=== PATIENT | male | born 1990 | race Caucasian/White ===

== ENCOUNTER 2020-06-11 17:57 | Emergency (ER) | payer BC ==
[2020-06-11] MEDS ORDERED: Sodium Chloride 0.9% 1,000 ML IV ONE (18:54)
[2020-06-11] MEDS ORDERED: cloNIDine 0.1 MG Tab PO ONE (19:04)
[2020-06-11] MEDS ORDERED: Iopamidol 755 Mg/ML 100 ML Bottle IVPUSH ONE (19:34)
[2020-06-11] MEDS ORDERED: Iopamidol 755 MG/ML 500 ML Multipack Bottle IVPUSH STA (19:35)
[2020-06-11 19:38] LABS: BLOOD UREA NITROGEN,BUN 14 mg/dL (7.0-18.0); CARBON DIOXIDE,CO2 25.4 mmol/L (21.0-32.0); CHLORIDE,CL 104 mmol/L (98-107); GLUCOSE RANDOM 102 mg/dL (74-106); POTASSIUM,K 4.2 mmol/L (3.5-5.1); SODIUM,NA 141 mmol/L (136-148)
--- NOTE | 2020-06-11 20:12 | CR ---
Clinical INDICATION: Chest pain. FINDINGS: The heart is mildly enlarged assuming this is a PA radiograph. The lungs are clear. The pulmonary vasculature and pleural surfaces appear normal. The bony thorax appears intact. Impression : The heart is mildly enlarged assuming that this is a PA radiograph as is designated on the image. Dictated by Jorge Jackson MD @ 06/11/2020 8:10:[address] Jorge Jackson @ Jun 11 2020 8:10PM
--- NOTE | 2020-06-11 20:28 | CT ---
DATE: 06/11/2020. CLINICAL HISTORY: Patient with acute onset vertigo. TECHNIQUE: Standard helical CT image acquisition through the head and neck was performed after intravenous contrast bolus enhancement. Multiplanar reconstructed images were performed and interpreted. COMPARISON: None available. FINDINGS: The origins of the great vessels from the aortic arch are patent. The origins of the right and left vertebral arteries are patent. The common carotid arteries are patent. There is no significant stenosis at the origin of the right internal carotid artery by NASCET criteria. There is no significant stenosis at the origin of the left internal carotid artery by NASCET criteria. The rest of the cervical segments of the internal carotid arteries are patent up to their intracranial segments. The intracranial segments of the internal carotid arteries are patent. The cervical segments of the vertebral arteries are patent. The intracranial segments of the vertebral arteries are patent. The anterior and middle cerebral arteries are patent. The anterior communicating artery is visualized and within normal limits. The basilar trunk and posterior cerebral arteries are patent. There is normal opacification of major intracranial venous structures. IMPRESSION: Normal CT angiogram of the head and neck. Please note that all CT scans at this facility use dose modulation, iterative reconstruction, and/or weight-based dosing when appropriate to reduce radiation dose to as low as reasonably achievable. Dictated by Macario Hastings MD @ 06/11/2020 8:35:[address] Macario Hastings @ Jun 11 2020 8:35PM
--- NOTE | 2020-06-11 20:48 | EDM.PDOC ---
ED HPI GENERAL MEDICAL PROBLEM - General Chief Complaint: Neurological Problem Stated Complaint: DIZZNIESS HBP Time Seen by Provider: 06/11/20 18:09 Source of Information: Reports: Patient History Limitations: Reports: No Limitations - History of Present Illness INITIAL COMMENTS - FREE TEXT/NARRATIVE: HISTORY AND PHYSICAL: History of present illness: Patient is a 29-year-old male who presents to the ED today with concern of dizziness/vertigo and balance issues that have been worse today. Patient states that he has been having issues with vertigo since the past 3 months and states that he has been having that off and on. Patient denies any head injury or loss of consciousness but states that he has had dizzy spells and off balance over the past 3 months. Patient states he followed up with a primary care provider, Dr. Figueroa, who told him he had an ear infection and gave him amoxicillin. Patient states that he finished the amoxicillin back in April and since then has continued to have episodes of vertigo and has not followed up as he was told it could be an inner ear issue. Patient states he has been taking Dramamine and meclizine [id number] which does help that he took both of these before coming to the emergency room without improvement of his symptoms. Patient states that he also has associated visual issues when the vertigo occurs and states that this does not happen every time but is happening during this episode. Patient states he has had happened a few times and states that a few times prior he did have double vision but states he is not currently having double vision. Patient states he has a difficulty with walking as he "feels drunk. Patient states that he does have some known mild elevation of his liver functions which he states he has not had fully evaluated in the past and states that he used to have a history of alcohol use before becoming a father 8 years ago but states that he has not used alcohol in 8 years. Patient states he also used to use anabolic steroids but has not used that in many years as well. She denies any other health history or any other symptoms or concerns. Patient denies fever, chills, chest pain, shortness of breath, or cough. Denies headache, neck stiff ness, change in vision, syncope, or near syncope. Denies nausea, vomiting, abdominal pain, diarrhea, constipation, or dysuria. Has not noted any blood in urine or stool. Patient has been eating and drinking appropriately. Review of systems: As per history of present illness and below otherwise all systems reviewed and negative. Past medical history: As per history of present illness and as reviewed below otherwise noncontributory. Surgical history: As per history of present illness and as reviewed below otherwise noncontrib utory. Social history: See social history for further information Family history: As per history of present illness and as reviewed below otherwise noncontributory. Physical exam: General: Patient is alert, oriented, and in no acute distress. Patient sitting comfortably on exam table. Hypertensive 190 over 120s otherwise vitally stable and reviewed by me. HEENT: Atraumatic, normocephalic, pupils equal and reactive bilaterally, negative for conjunctival pallor or scleral icterus, mucous membranes moist, TMs normal bilaterally, throat clear, neck supple, nontender, trachea midline. No drooling or trismus noted. No meningeal signs. No hot potato voice noted. Lungs: Clear to auscultation, breath sounds equal bilaterally, chest nontender. Heart: S1S2, regular rate and rhythm without overt murmur Abdomen: Soft, nondistended, nontender. Negative for masses or hepatosplenomegaly. Negative for costovertebral tenderness. Pelvis: Stable nontender. Genitourinary: Deferred. Rectal: Deferred. Skin: Intact, warm, dry. No lesions or rashes noted. Extremities: Atraumatic, negative for cords or calf pain. Neurovascular unremarkable. Neuro: Awake, alert, oriented. Cranial nerves II through XII unremarkable. Patient is off balance with walking and states he is light headed and needs to sit down. No nystagmus present on deisy hallpike maneuver. Notes: Upon arrival to the ED, patient is hypertensive 190s over 120s and otherwise vitally stable. He does get dizzy and off balance when trying to walk. He does not have nystagmus noted on exam with a Ronks-Hallpike maneuver. Will obtain lab work and and head and neck CT. On lab work, CBC does show erythrocytosis otherwise unremarkable. CMP does show mild elevation in creatinine at 1.5. Mild elevation of AST at 64 and ALT at 144. Troponin is negative. BNP is within normal limits. Chest x-ray shows that the heart is mildly enlarged assuming that this is a PA radiograph as designated on the image. Head and neck angio CT is unremarkable. Upon reevaluation of patient, he is now able to walk without being off balance and states that his lightheadedness has resolved.BP now 170/90 and remains vitally stable throughout stay in ED. Strict return precautions thoroughly discussed with patient. Discussed importance for follow-up with his primary care provider/and the neurologist. He states that he does have an appointment in the morning with his PCP. Voices understanding and is agreeable to plan of care. Denies any further questions or concerns at this time. Diagnostics: CBC, CMP, troponin, BMP, chest x-ray, and head neck CT orthostatic vital signs Therapeutics: NS, Clonidine Prescription: None Impression: Dizziness Hypertension Transaminitis Plan: 1. Continue to use Meclizine as needed for dizziness as discussed. 2. Establish care / follow up with a primary care divider and neurologist as discussed. Return to the ED as needed and as discussed. Definitive disposition and diagnosis as appropriate pending reevaluation and review of above. - Related Data Allergies Allergy/AdvReac Type Severity Reaction Status Date / Time No Known Allergies Allergy Verified 06/11/20 18:41 Home Meds: Home Meds Meclizine [Antivert] 25 mg PO Q6H PRN 06/11/20 [History] Vertisil 1 tab PO BID 06/11/20 [History] dimenhyDRINATE [Dimenhydrinate] 50 mg PO QAM 06/11/20 [History] Past Medical History Neurological History: Reports: Vertigo - Infectious Disease History Infectious Disease History: Reports: None Social & Family History - Family History Family Medical History: No Pertinent Family History - Caffeine Use Caffeine Use: Reports: None - Recreational Drug Use Recreational Drug Use: No ED ROS GENERAL - Review of Systems Review Of Systems: Comprehensive ROS is negative, except as noted in HPI. ED EXAM, GENERAL - Physical Exam Exam: See Below (see dictation) Course - Vital Signs Last Recorded V/S: Last Vital Signs Temp 98.2 F 06/11/20 18:38 Pulse 82 06/11/20 20:39 Resp 18 06/11/20 20:39 BP 148/85 H 06/11/20 20:39 Pulse Ox 94 L 06/11/20 20:39 Orthostatic Blood Pressure [ 135/91 Standing] Orthostatic Blood Pressure [ 160/68 Sitting] Orthostatic Blood Pressure [ 148/87 Supine] - Orders/Labs/Meds Labs: Laboratory Tests 06/11/20 06/11/20 06/11/20 Range/Units 19:06 19:06 19:06 WBC 8.68 (4.0-11.0) K/uL RBC 6.61 H (4.50-5.90) M/uL Hgb 19.4 H (13.0-17.0) g/dL Hct 58.0 H (38.0-50.0) % MCV 87.7 (80.0-98.0) fL MCH 29.3 (27.0-32.0) pg MCHC 33.4 (31.0-37.0) g/dL RDW Std Deviation 43.0 (28.0-62.0) fl RDW Coeff of Roxie 14 (11.0-15.0) % Plt Count 208 (150-400) K/uL MPV 10.80 (7.40-12.00) fL Neut % (Auto) 76.4 (48.0-80.0) % Lymph % (Auto) 16.7 (16.0-40.0) % Clarke % (Auto) 6.1 (0.0-15.0) % Eos % (Auto) 0.7 (0.0-7.0) % Baso % (Auto) 0.1 (0.0-1.5) % Neut # (Auto) 6.6 H (1.4-5.7) K/uL Lymph # (Auto) 1.5 (0.6-2.4) K/uL Clarke # (Auto) 0.5 (0.0-0.8) K/uL Eos # (Auto) 0.1 (0.0-0.7) K/uL Baso # (Auto) 0.0 (0.0-0.1) K/uL Nucleated RBC % 0.0 /100WBC Nucleated RBCs # 0 K/uL Sodium 141 (136-148) mmol/L Potassium 4.2 (3.5-5.1) mmol/L Chloride 104 (98-107) mmol/L Carbon Dioxide 25.4 (21.0-32.0) mmol/L BUN 14 (7.0-18.0) mg/dL Creatinine 1.5 H (0.8-1.3) mg/dL Est Cr Clr Drug Dosing 85.28 mL/min Estimated GFR (MDRD) 54.6 ml/min Glucose 102 (74-106) mg/dL Calcium 9.3 (8.5-10.1) mg/dL Total Bilirubin 0.5 (0.2-1.0) mg/dL AST 64 H (15-37) IU/L ALT 144 H (14-63) IU/L Alkaline Phosphatase 46 (46-116) U/L Troponin I < 0.050 (0.000-0.056) ng/mL B-Natriuretic Peptide < 2 (<100) PG/ML Total Protein 7.6 (6.4-8.2) g/dL Albumin 3.9 (3.4-5.0) g/dL Globulin 3.7 (2.6-4.0) g/dL Albumin/Globulin Ratio 1.1 (0.9-1.6) Urine Color Urine Appearance Urine pH (5.0-8.0) Ur Specific Beverly (1.001-1.035) Urine Protein (NEGATIVE) mg/dL Urine Glucose (UA) (NEGATIVE) mg/dL Urine Ketones (NEGATIVE) mg/dL Urine Occult Blood (NEGATIVE) Urine Nitrite (NEGATIVE) Urine Bilirubin (NEGATIVE) Urine Urobilinogen (<2.0) EU/dL Ur Leukocyte Esterase (NEGATIVE) Urine RBC (0-2/HPF) Urine WBC (0-5/HPF) Ur Epithelial Cells (NONE-FEW) Urine Bacteria (NEGATIVE) 06/11/20 Range/Units 20:32 WBC (4.0-11.0) K/uL RBC (4.50-5.90) M/uL Hgb (13.0-17.0) g/dL Hct (38.0-50.0) % MCV (80.0-98.0) fL MCH (27.0-32.0) pg MCHC (31.0-37.0) g/dL RDW Std Deviation (28.0-62.0) fl RDW Coeff of Roxie (11.0-15.0) % Plt Count (150-400) K/uL MPV (7.40-12.00) fL Neut % (Auto) (48.0-80.0) % Lymph % (Auto) (16.0-40.0) % Clarke % (Auto) (0.0-15.0) % Eos % (Auto) (0.0-7.0) % Baso % (Auto) (0.0-1.5) % Neut # (Auto) (1.4-5.7) K/uL Lymph # (Auto) (0.6-2.4) K/uL Clarke # (Auto) (0.0-0.8) K/uL Eos # (Auto) (0.0-0.7) K/uL Baso # (Auto) (0.0-0.1) K/uL Nucleated RBC % /100WBC Nucleated RBCs # K/uL Sodium (136-148) mmol/L Potassium (3.5-5.1) mmol/L Chloride (98-107) mmol/L Carbon Dioxide (21.0-32.0) mmol/L BUN (7.0-18.0) mg/dL Creatinine (0.8-1.3) mg/dL Est Cr Clr Drug Dosing mL/min Estimated GFR (MDRD) ml/min Glucose (74-106) mg/dL Calcium (8.5-10.1) mg/dL Total Bilirubin (0.2-1.0) mg/dL AST (15-37) IU/L ALT (14-63) IU/L Alkaline Phosphatase (46-116) U/L Troponin I (0.000-0.056) ng/mL B-Natriuretic Peptide (<100) PG/ML Total Protein (6.4-8.2) g/dL Albumin (3.4-5.0) g/dL Globulin (2.6-4.0) g/dL Albumin/Globulin Ratio (0.9-1.6) Urine Color YELLOW Urine Appearance CLEAR Urine pH 6.5 (5.0-8.0) Ur Specific Beverly 1.010 (1.001-1.035) Urine Protein TRACE H (NEGATIVE) mg/dL Urine Glucose (UA) NEGATIVE (NEGATIVE) mg/dL Urine Ketones NEGATIVE (NEGATIVE) mg/dL Urine Occult Blood NEGATIVE (NEGATIVE) Urine Nitrite NEGATIVE (NEGATIVE) Urine Bilirubin NEGATIVE (NEGATIVE) Urine Urobilinogen 0.2 (<2.0) EU/dL Ur Leukocyte Esterase NEGATIVE (NEGATIVE) Urine RBC 0-1 (0-2/HPF) Urine WBC 0-1 (0-5/HPF) Ur Epithelial Cells RARE (NONE-FEW) Urine Bacteria RARE (NEGATIVE) Meds: Medications Discontinued Medications Generic Name Dose Route Start Last Admin Trade Name Heriberto PRN Reason Stop Dose Admin Clonidine HCl 0.1 mg 06/11/20 19:04 06/11/20 19:49 Clonidine 0.1 Mg Tab PO 06/11/20 19:05 0.1 mg ONETIME ONE Administration Sodium Chloride 1,000 mls @ 999 mls/hr 06/11/20 18:54 06/11/20 19:01 Normal Saline IV 06/11/20 19:54 999 mls/hr BOLUS ONE Administration Iopamidol 100 ml 06/11/20 19:34 Iopamidol 755 Mg/Ml 100 Ml Bottle IVPUSH 06/11/20 19:35 ONETIME ONE Iopamidol 100 ml 06/11/20 19:35 06/11/20 19:36 Iopamidol 755 Mg/Ml 500 Ml Multipack Bottle IVPUSH 06/11/20 19:36 100 ml ONETIME STA Administration Departure - Departure Time of Disposition: 20:43 Disposition: Home, Self-Care 01 Clinical Impression: Dizziness, Transaminitis Hypertension Qualifiers: Hypertension type: unspecified Qualified Code(s): I10 - Essential (primary) hypertension - Discharge Information Instructions: Vertigo, [id number], Hypertension, Adult, [id number], Dizziness, [id number] Referrals: Dalila Lopez MD [Physician] - Abebe Flores MD [Primary Care Provider] - Forms: ED Department Discharge Additional Instructions: The following information is given to patients seen in the emergency department who are being discharged to home. This information is to outline your options for follow-up care. We provide all patients seen in our emergency department w ith a follow-up referral. The need for follow-up, as well as the timing and circumstances, are variable depending upon the specifics of your emergency department visit. If you don't have a primary care physician on staff, we will provide you with a referral. We always advise you to contact your personal physician following an emergency department visit to inform them of the circumstance of the visit and for follow-up with them and/or the need for any referrals to a consulting specialist. The emergency department will also refer you to a specialist when appropriate. This referral assures that you have the opportunity for follow-up care with a specialist. All of these measure are taken in an effort to provide you with optimal care, which includes your follow-up. Under all circumstances we always encourage you to contact your private physician who remains a resource for coordinating your care. When calling for follow-up care, please make the office aware that this follow-up is from your recent emergency room visit. If for any reason you are refused follow-up, please contact the [facility] Emergency Department at and asked to speak to the emergency department charge nurse. [facility] [address] [place] [id number] [address] [facility] [address] [place] [address], [address] [place] [address] 1. Continue to use Meclizine as needed for dizziness as discussed. 2. Establish care / follow up with a primary care divider and neurologist as discussed. Return to the ED as needed and as discussed. Sepsis Event Note (ED) - Evaluation Sepsis Screening Result: No Definite Risk
--- NOTE | 2020-06-12 06:59 | PCM.SN.2 ---
- Free Text/Narrative Note: EKG: As interpreted by ER physician: Lisa: Nonspecific ST-T wave abnormalities Normal axis No evidence of ST elevation LA Normal sinus rhythm heart rate of 74
== END 2020-06-11 21:25 | disposition home or self-care (01) ==
LOC: MW.ED 17:57
DX: R42 Dizziness and giddiness (principal); I10 Essential (primary) hypertension; R74.01 Elevation of levels of liver transaminase levels
CPT/HCPCS: 36415; 70496; 70498; 71045; 80053; 81001; 83880; 84484; 85025; 93005; 99284; A9270; J7030; Q9967; 93010; 99283

== ENCOUNTER 2022-07-04 19:18 | Emergency (ER) | payer OTHER, BC ==
[2022-07-04] MEDS ORDERED: Diphtheria,Pertussis(Acell),Tetanus Vaccine 0.5 ML Syringe IM ONE (20:58)
== END 2022-07-04 21:46 | disposition home or self-care (01) ==
LOC: MW.ED 19:18
DX: S61.431A Puncture wound without foreign body of right hand, initial encounter (principal); Z23 Encounter for immunization; W26.8XXA Contact with other sharp object(s), not elsewhere classified, initial encounter
CPT/HCPCS: 73130-26-RT; 73130-RT; 90471; 90715; 99283